=== PATIENT | female | born 1940 | race Asian ===

== ENCOUNTER 2017-09-03 19:57 | Inpatient (IN) | payer OTHER ==
[~2017-09-03] VITALS: Ht 160 cm; Wt 82.3 kg
[2017-09-03] MEDS ORDERED: GABAPENTIN100 M2 (21:46)
[2017-09-03] MEDS ORDERED: ATENOLOL50 MG PO (21:46)
[2017-09-03] MEDS ORDERED: GLIPIZIDE5 M2 PO (21:46)
[2017-09-03] MEDS ORDERED: NAPROXEN375 MG PO (21:47)
[2017-09-03 21:50] LABS: BASOPHIL % 0.1 % (0-2); PLATELET COUNT 366 x10^3mcL (130-400)
[2017-09-03 21:51] LABS: RED CELL DISTRIBUTION WIDTH 15.2 % (11.5-14.5)
[2017-09-03 22:03] LABS: ALKALINE PHOSPHATASE 104 U/L (46-116); ALT/SGPT 19 U/L (14-59); AST/SGOT 22 U/L (15-37); BILIRUBIN TOTAL 0.6 mg/dL (0.20-1.00); CALCIUM 8.3 mg/dL (8.5-10.1); CARBON DIOXIDE 20.8 mmol/L (21-32); CHLORIDE SERUM 99 mmol/L (98-107); CREATININE SERUM 1.6 mg/dL (0.6-1.0); POTASSIUM SERUM 4.7 mmol/L (3.5-5.1); SODIUM SERUM 132 mmol/L (136-145); TOTAL PROTEIN, SERUM 7.6 g/dL (6.4-8.2)
[2017-09-03 22:06] LABS: GLUCOSE SERUM 50 mg/dL (74-106)
[2017-09-03 23:07] VITALS: BP 153/84
[2017-09-03 23:10] VITALS: Ht 160 cm; Wt 82.3 kg
[2017-09-04 00:52] LABS: T3 TOTAL 0.63 ng/mL
[2017-09-04 00:58] LABS: CHOLESTEROL/HDL RATIO 4.6; MAGNESIUM 2.2 mg/dL (1.8-2.4)
[2017-09-04 01:05] LABS: FREE T4 1.51 ng/dL (0.76-1.46); FREE THYROXINE INDEX 3.9 ug/dL (1.4-4.5); T4(THYROXINE) 10.3 ug/dL (4.7-13.3)
[2017-09-04 05:16] VITALS: BP 141/62
[2017-09-04 08:30] LABS: BASOPHIL % 0.1 % (0-2); PLATELET COUNT 304 x10^3mcL (130-400)
[2017-09-04 08:37] LABS: RED CELL DISTRIBUTION WIDTH 15.1 % (11.5-14.5)
[2017-09-04 08:43] LABS: CALCIUM 7.8 mg/dL (8.5-10.1); CARBON DIOXIDE 19.5 mmol/L (21-32); CHLORIDE SERUM 100 mmol/L (98-107); CREATININE SERUM 1.3 mg/dL (0.6-1.0); GLUCOSE SERUM 87 mg/dL (74-106); MAGNESIUM 1.8 mg/dL (1.8-2.4); PHOSPHOROUS 3.5 mg/dL (2.5-4.9); POTASSIUM SERUM 3.9 mmol/L (3.5-5.1); SODIUM SERUM 130 mmol/L (136-145)
[2017-09-04 10:02] VITALS: BP 109/68
[2017-09-04 14:32] VITALS: BP 103/75
[2017-09-04 16:39] VITALS: BP 124/61
[2017-09-04 21:42] VITALS: BP 111/47
[2017-09-05 06:29] VITALS: BP 140/46
[2017-09-05 06:54] LABS: CALCIUM 7.6 mg/dL (8.5-10.1); CARBON DIOXIDE 18.9 mmol/L (21-32); CHLORIDE SERUM 106 mmol/L (98-107); CREATININE SERUM 1.2 mg/dL (0.6-1.0); GLUCOSE SERUM 96 mg/dL (74-106); PHOSPHOROUS 3.6 mg/dL (2.5-4.9); POTASSIUM SERUM 3.9 mmol/L (3.5-5.1); SODIUM SERUM 136 mmol/L (136-145)
[2017-09-05 07:48] LABS: PLATELET COUNT 320 x10^3mcL (130-400)
[2017-09-05 08:53] LABS: RED CELL DISTRIBUTION WIDTH 15.2 % (11.5-14.5)
[2017-09-05] MEDS ORDERED: LIPI10 PO (10:07)
[2017-09-05] MEDS ORDERED: GOOD SENSE ASPI81 M3 PO (10:07)
[2017-09-05 10:33] VITALS: BP 121/43
[2017-09-05 11:03] LABS: ATYPICAL LYMPH 1 %; BAND NEUTROPHIL 13 % (0-10); BASOPHIL 0 % (0-2); MONOCYTE 6 % (0-7); PLATELET MORPHOLOGY PLATELETS NORMAL; SEGMENTED NEUTROPHILS 51 % (37-75); rbc morphology (normal/abnorm) ABNORMAL (NORMAL)
[2017-09-05 13:56] VITALS: BP 138/49
[2017-09-05 14:08] VITALS: BP 138/49
== END 2017-09-05 15:07 | disposition home or self-care (01) | DRG 420 ==
LOC: ED 19:57 → DU 21:25
PROVIDERS: Emergency Medicine; ADMIT Family Medicine
DX: E11.649 Type 2 diabetes mellitus with hypoglycemia without coma (principal); N17.0 Acute kidney failure with tubular necrosis; E11.65 Type 2 diabetes mellitus with hyperglycemia; D64.9 Anemia, unspecified; G90.9 Disorder of the autonomic nervous system, unspecified; N18.9 Chronic kidney disease, unspecified; E11.22 Type 2 diabetes mellitus with diabetic chronic kidney disease; E11.40 Type 2 diabetes mellitus with diabetic neuropathy, unspecified; I12.9 Hypertensive chronic kidney disease with stage 1 through stage 4 chronic kidney disease, or unspecified chronic kidney disease; E87.1 Hypo-osmolality and hyponatremia; M19.90 Unspecified osteoarthritis, unspecified site; Z99.3 Dependence on wheelchair; Z82.49 Family history of ischemic heart disease and other diseases of the circulatory system
CPT/HCPCS: 82962; 83880; 84439; 97110-GP; 97530-GP; 97542-GP; J2405; J3490; J7030; J7042; Q0092